=== PATIENT | female | born 1965 | race Caucasian/White ===

== ENCOUNTER 2018-08-18 20:43 | Emergency (ER) | payer BC, OTHER ==
[~2018-08-18] VITALS: Ht 162.6 cm; Wt 93.0 kg
[~2018-08-18 20:43] MED LIST: IBUPROFEN 800800 M1 PO; KEFLEX500 M1 PO
[2018-08-18] MEDS ORDERED: MEDROLDOSEPACK PO (21:27)
[2018-08-18 21:41] VITALS: BP 149/90
== END 2018-08-18 21:42 | disposition home or self-care (01) ==
LOC: M.ERS 20:43
DX: M77.01 Medial epicondylitis, right elbow (principal); Z88.7 Allergy status to serum and vaccine; Z88.5 Allergy status to narcotic agent; Z86.73 Personal history of transient ischemic attack (TIA), and cerebral infarction without residual deficits; Z90.710 Acquired absence of both cervix and uterus